=== PATIENT | male | born 1960 | race American Indian/Alaskan Native ===

== ENCOUNTER 2022-02-02 10:14 | Emergency (ER) | payer OTHER ==
--- NOTE | 2022-02-02 11:18 | XRay Report ---
XR chest 1V ap INDICATION / CLINICAL INFORMATION: SOB. COMPARISON: None available. FINDINGS: SUPPORT DEVICES: None. HEART /PULMONARY VASCULATURE: No significant abnormality. LUNGS / PLEURA: No significant pulmonary or pleural abnormality. No pneumothorax. IMPRESSION: 1. No acute findings. Signer Name: Osmin Aguila MD Signed: 02/02/2022 11:13 AM Workstation Name: [id number]
[2022-02-02 11:20] LABS: Hematocrit 46.8 % (35.5-45.6); Hemoglobin 15.8 gm/dl (11.8-15.2); Mean Corpuscular HGB Conc 34 % (32-34); Mean Corpuscular Volume 91 fl (84-94); Platelet Count 361 K/mm3 (140-440); Red Blood Count 5.17 M/mm3 (3.65-5.03)
[2022-02-02 11:24] LABS: Basophils % (Auto) 0.6 % (0.0-1.8); Eosinophils % (Auto) 0.5 % (0.0-4.3); Lymphocytes # (Auto) 1.6 K/mm3 (1.2-5.4); Lymphocytes % (Auto) 23.5 % (13.4-35.0); Monocytes # (Auto) 0.8 K/mm3 (0.0-0.8); Monocytes % (Auto) 11.4 % (0.0-7.3)
[2022-02-02 11:32] LABS: Alanine Aminotransferase 19 units/L (7-56); BUN/Creatinine Ratio 14; Blood Urea Nitrogen 15 mg/dL (9-20); Calcium 9.9 mg/dL (8.4-10.2); Hemolysis Index 44
[2022-02-02 11:43] LABS: Chol/HDL Ratio 2.16 %; HDL Cholesterol 86 mg/dL (40-59); LDL Cholesterol,Direct 85 mg/dL (50-130)
--- NOTE | 2022-02-02 12:37 | Emergency Department Report ---
ED General Adult HPI - General Chief complaint: Dyspnea/Respdistress Stated complaint: SOB Time Seen by Provider: 02/02/22 11:05 Source: patient, EMS Mode of arrival: Stretcher Limitations: No Limitations - History of Present Illness Initial comments: Chief complaint complaint: "I need my medicine." HPI: 61-year-old male with history of hypertension, dysrhythmia, dyslipidemia and congestive heart failure who presents with rapid heartbeat and near syncope for several months. He has been out of this medication since October. He is followed at the [place] [facility]. He does not have transportation. He takes 11 medications. He can recall carvedilol trazodone albuterol MDI and gabapentin. He also takes medicine for cholesterol -: Gradual, month(s) (Several months) Consistency: intermittent Improves with: rest Worsens with: other (Exertion) Associated Symptoms: shortness of breath Treatments Prior to Arrival: other (EMS transport) - Related Data Previous Rx's Medication Instructions Recorded Last Taken Type Albuterol Mdi (or & Nicu Only) 2 puff IH QID PRN #1 device 02/02/22 Unknown Rx [ProAir HFA Inhaler] carvediloL [Coreg] 3.125 mg PO BID 30 Days #60 tablet 02/02/22 Unknown Rx traZODone [Desyrel] 100 mg PO QHS #30 tablet 02/02/22 Unknown Rx Allergies Allergy/AdvReac Type Severity Reaction Status Date / Time No Known Allergies Allergy Verified 02/02/22 10:17 ED Review of Systems ROS: Stated complaint: SOB Other details as noted in HPI Comment: All other systems reviewed and negative Constitutional: denies: chills, fever, malaise Respiratory: shortness of breath. denies: cough Cardiovascular: palpitations Gastrointestinal: denies: abdominal pain, nausea, vomiting ED Past Medical Hx - Past Medical History Previous Medical History?: Yes Hx Hypertension: Yes Hx Congestive Heart Failure: Yes Hx Diabetes: Yes Hx Asthma: Yes - Surgical History Past Surgical History?: Yes Additional Surgical History: Cardiac intervention - Social History Smoking Status: Former Smoker Substance Use Type: None - Medications Home Medications: Home Medications Medication Instructions Recorded Confirmed Last Taken Type Albuterol Mdi (or & Nicu Only) 2 puff IH QID PRN #1 device 02/02/22 Unknown Rx [ProAir HFA Inhaler] carvediloL [Coreg] 3.125 mg PO BID 30 Days #60 tablet 02/02/22 Unknown Rx traZODone [Desyrel] 100 mg PO QHS #30 tablet 02/02/22 Unknown Rx ED Physical Exam - General Limitations: No Limitations General appearance: alert, in no apparent distress - Head Head exam: Present: atraumatic, normocephalic - Eye Eye exam: Present: normal appearance - ENT ENT exam: Present: mucous membranes moist - Neck Neck exam: Present: normal inspection, full ROM - Respiratory Respiratory exam: Present: normal lung sounds bilaterally. Absent: respiratory distress, wheezes, rales, rhonchi - Cardiovascular Cardiovascular Exam: Present: regular rate, normal rhythm, normal heart sounds. Absent: systolic murmur, diastolic murmur, rubs, gallop - GI/Abdominal GI/Abdominal exam: Present: soft, normal bowel sounds. Absent: distended, tenderness, guarding, rebound - Rectal Rectal exam: Present: deferred - Extremities Exam Extremities exam: Present: normal inspection - Neurological Exam Neurological exam: Present: alert, oriented X3 - Psychiatric Psychiatric exam: Present: normal affect, normal mood - Skin Skin exam: Present: warm, dry, intact, normal color. Absent: rash ED Course Vital Signs 02/02/22 02/02/22 10:15 11:00 Temperature 97.6 F Pulse Rate 90 Respiratory 20 Rate Blood Pressure 128/74 [Right] O2 Sat by Pulse 99 98 Oximetry ED Medical Decision Making - Lab Data Result diagrams: 02/02/22 10:54 02/02/22 10:54 Laboratory Results - last 24 hr 02/02/22 02/02/22 10:54 10:54 WBC 7.0 RBC 5.17 H Hgb 15.8 H Hct 46.8 H MCV 91 MCH 31 MCHC 34 RDW 14.0 Plt Count 361 Lymph % (Auto) 23.5 [place] % (Auto) 11.4 H Eos % (Auto) 0.5 Baso % (Auto) 0.6 Lymph # (Auto) 1.6 [place] # (Auto) 0.8 Eos # (Auto) 0.0 Baso # (Auto) 0.0 Add Manual Diff Complete Seg Neutrophils % 64.0 Seg Neutrophils # 4.5 Sodium 137 Potassium 4.4 Chloride 100.4 Carbon Dioxide 20 L Anion Gap 21 BUN 15 Creatinine 1.1 Estimated GFR > 60 BUN/Creatinine Ratio 14 Glucose 170 H Calcium 9.9 Total Bilirubin 1.30 H AST 22 ALT 19 Alkaline Phosphatase 154 H Troponin T 0.082 H Total Protein 7.7 Albumin 4.0 Albumin/Globulin Ratio 1.1 Triglycerides 117 Cholesterol 186 LDL Cholesterol Direct 85 HDL Cholesterol 86 H Cholesterol/HDL Ratio 2.16 - EKG Data -: EKG Interpreted by Ak - EKG Data 02/02/22 12:36 EKG obtained 1110 Normal sinus rhythm rate 80 bpm normal axis normal intervals no ST elevation poor R wave progression anterior leads - Radiology Data Radiology results: report reviewed Patient Name: JARED BARNEY Gender: Male Date of : 1960 Home Phone: Referring Provider: SALIMA JONES Organization: [facility] Accession Number: [id number] Requested Date: February 02, 2022 10:45 Report Status: Final Requested Procedure: 1 Procedure Description: XR chest 1V ap Modality: XR Findings Reporting MD: Osmin Aguila Dictation Time: February 02, 2022 10:13 Health And Safety Inspector: Not available High Density Finishing Operator Date: XR chest 1V ap INDICATION / CLINICAL INFORMATION: SOB. COMPARISON: None available. FINDINGS: SUPPORT DEVICES: None. HEART /PULMONARY VASCULATURE: No significant abnormality. LUNGS / PLEURA: No significant pulmonary or pleural abnormality. No pneumothorax. IMPRESSION: 1. No acute findings. Signer Name: Osmin Aguila MD Signed: 02/02/2022 10:13 AM Workstation Name: [id number] - Medical Decision Making Ms. barney has history of CHF, COPD. He has had intermittent palpitations shortness of breath. No acute issues at this time. He requires primary medical care. I have agreed to refill carvedilol trazodone albuterol AMY. I strongly encouraged him to have a relative or friend take him to the [place] [facility] for [facility]. Oxygen 99% on room air after exertion without treatment emergency department. Chest radiograph without pulmonary edema. Minimally elevated troponin attributed to cardiomyopathy. Patient did not have chest pain to indicate acute coronary syndrome. Critical care attestation.: If time is entered above; I have spent that time in minutes in the direct care of this critically ill patient, excluding procedure time. ED Disposition Clinical Impression: COPD (chronic obstructive pulmonary disease), Congestive heart failure Disposition: HOME / SELF CARE / HOMELESS Is pt being admited?: No Does the pt Need Aspirin: No Condition: Stable Instructions: Chronic Obstructive Pulmonary Disease (ED) Prescriptions: traZODone [Desyrel] 100 mg PO QHS #30 tablet carvediloL [Coreg] 3.125 mg PO BID 30 Days #60 tablet Albuterol Mdi (or & Nicu Only) [ProAir HFA Inhaler] 2 puff IH QID PRN #1 device PRN Reason: Shortness Of Breath Referrals: RANJAN KENNEDY MD [Staff Physician] - 3-5 Days
[2022-02-02 13:11] VITALS: BP 128/76
--- NOTE | 2022-02-03 09:22 | Electrocardiograph Report ---
[facility] Test Date: 2022-02-02 Test Time: 11:10:52 Pat Name: JARED BARNEY Department: Room: Gender: M [employer]: GP : 1960 Requested By: SALIMA JONES Order Number: [id number] Reading MD: Jamal Bustos Measurements Intervals [place] Rate: 82 P: 66 ND: 167 QRS: 67 QRSD: 92 T: 104 QT: 409 QTc: 478 Interpretive Statements Sinus rhythm nonspecific st-t No previous ECG available for comparison Electronically Signed On 02-03-2022 9:21:57 EST by Jamal Bsutos
== END 2022-02-02 13:30 | disposition home or self-care (01) ==
LOC: ED 10:14
DX: J44.9 Chronic obstructive pulmonary disease, unspecified (principal); I50.9 Heart failure, unspecified; E11.8 Type 2 diabetes mellitus with unspecified complications; I10 Essential (primary) hypertension; Z87.891 Personal history of nicotine dependence; J45.909 Unspecified asthma, uncomplicated
CPT/HCPCS: 36415; 71045; 80053; 80061; 84484; 85025; 93005; 99284